=== PATIENT | male | born 1965 | race African-American/Black ===

== ENCOUNTER 2017-07-16 09:25 | Emergency (ER) | payer OTHER ==
[~2017-07-16] VITALS: Ht 165.1 cm; Wt 85.0 kg
[~2017-07-16 09:25] MED LIST: NAPR550 PO; NASA0.0521; PROT40TA PO; ROBA750T3 PO
[2017-07-16 09:30] VITALS: BP 145/83; PULSE 89; RESP 16; TEMP 98.2; O2SAT 98
[2017-07-16] MEDS ORDERED: TRAM50TA PO (09:54)
[2017-07-16] MEDS ORDERED: NAPR500T2 PO (09:54)
[2017-07-16] MEDS ORDERED: KETOROLAC TROMETHAMINE 60 MG/2 ML (IM) VIAL IM ONE (10:00)
--- NOTE | 2017-07-16 10:03 | PD ---
HPI Chief Complaint: Musculoskeletal Complaint Time Seen by Provider: 09:51 Travel History International Travel<30 days: No Contact w/Intl Traveler<30days: No Traveled to known affect area: No History of Present Illness HPI 52-year-old male here with left knee and hip pain times one day. Denies injury or trauma. Patient is with weightbearing range of motion. Slightly relieved with BenGay and rest. Severity is mild. Patient denies lower extremity swelling, altered sensation, history of DVTs. He reports a history of knee arthritis. [facility] Past Medical History Medical History: Denies Significant Hx Diminished Hearing: No Tetanus Vaccination: < 5 Years Past Surgical History Other Surgery: Yes (NASAL SURGERY) Social History Alcohol Use: Yes (OCC) Tobacco Use: No Substance Use: No Allergies-Medications (Allergen,Severity, Reaction): Coded Allergies: No Known Allergies (Unverified Adverse Reaction, Unknown, 07/16/17) Reported Meds & Prescriptions Reported Meds & Active Scripts Active Reported Tramadol (Tramadol HCl) 50 Mg Tab 50 Mg PO Q8H PRN Naproxen 500 Mg Tab 500 Mg PO BID Review of Systems Except as stated in HPI: all other systems reviewed are Neg Physical Exam Narrative GENERAL: Alert well-appearing 52-year-old male. Patient ambulates with steady gait SKIN: Warm and dry. HEAD: Normocephalic. EYES: No injection or drainage. NECK: Supple MUSCULOSKELETAL: No cyanosis, or edema. Left lower extremity: Mild +TTP anterior/lateral thigh, knee, hip. Hip/knee flexion elicit mild pain. No extremity swelling. No calf tenderness. Negative Homans sign. 2+ DP pulse. Extremities warm. Brisk cap refill. BACK: Nontender without obvious deformity. No CVA tenderness. Data Data Last Documented VS Vital Signs Date Time Temp Pulse Resp B/P (MAP) Pulse Ox O2 Delivery O2 Flow Rate FiO2 07/16/17 09:30 98.2 89 16 145/83 (103) 98 Orders Orders Ketorolac Inj (Toradol Inj) (07/16/17 10:00) [facility] Medical Decision Making Medical Screen Exam Complete: Yes Emergency Medical Condition: Yes Differential Diagnosis Quadricep strain, arthritis, fracture unlikely, DVT unlikely Narrative Course 52-year-old male here with left knee/thigh/hip pain times one day. Symptom severity is mild. Extremity is neurovascularly intact. Is given a shot of Toradol. Instructed to follow-up with his primary doctor. Diagnosis Primary Impression: Quadriceps muscle strain Qualified Codes: S76.112A - Strain of left quadriceps muscle, fascia and tendon, initial encounter Referrals: Primary Care Physician Additional Instructions: Continue Naprosyn and Ultram as needed for pain. Continue to use BenGay. Avoid heavy lifting or strenuous activity. Follow-up with her primary doctor. Return to emergency department if he developed new or worsening symptoms Disposition: 01 DISCHARGE HOME Condition: Stable Kaitlyn Mccoy Jul 16, 2017 10:03
== END 2017-07-16 10:09 | disposition home or self-care (01) ==
LOC: PHED 09:25 → PHEFT 10:09
DX: S76.112A Strain of left quadriceps muscle, fascia and tendon, initial encounter (principal); X58.XXXA Exposure to other specified factors, initial encounter
CPT/HCPCS: 96372; 99284; J1885

== ENCOUNTER 2017-12-06 05:20 | Inpatient (IN) ==
[2017-12-06] MEDS ORDERED: Dexamethasone Inj 20 MG/5 ML Vial IV.PUSH SCH (05:40)
[2017-12-06] MEDS ORDERED: Chlorhexidine 4% Topical 120 APPLIC/120 ML Bottle TOPICAL SCH (05:45)
[2017-12-06] MEDS ORDERED: Sodium Chlor 0.9% Inj 40 ML, Bupivacaine Liposo PF 1.3% Inj 20 ML P-ARTICULR SCH ×2 (05:45)
[2017-12-06] MEDS ORDERED: Chlorhexidine Gluconate 2% 1 Pack (2 Cloths) TOPICAL SCH (06:00)
[2017-12-06] MEDS ORDERED: Sodium Chlor 0.9% Inj 500 ML IV.SIG SCH (06:00)
[2017-12-06] MEDS ORDERED: Metoprolol Tartrate 25 MG Tablet PO SCH (06:00)
[2017-12-06] MEDS ORDERED: ceFAZolin Inj 2,000 MG in Sodium Chlor 0.9% Inj 100 ML IV.SIG SCH ×2 (06:00)
[2017-12-06] MEDS ORDERED: Vancomycin Inj 1 GM/200 ML PIGGYBACK IV.SIG SCH (06:00)
[2017-12-06] MEDS ORDERED: ceFAZolin 2 GM Premix Inj 2 GM/50 ML PIGGYBACK IV.SIG ONE (06:51)
[2017-12-06] MEDS ORDERED: TRANEXAMIC ACID IV.SIG SCH ×2 (07:00→10:00)
[2017-12-06] MEDS ORDERED: SODIUM CHLOR 0.9% IV.SIG SCH ×2 (07:00→10:00)
--- NOTE | 2017-12-06 07:15 | P.DCO ---
- Physical Therapy Physical Therapy: Gait training, Transfer training, bed to chair Hip: Total hip Left Lower Extremity Weight Bearing: Weight bearing as tolerated Left Lower Extremity Range of Motion: Active ROM - Nursing Nursing: Sae bruno Dressing changes: Do not change dressing Additional instructions: First dressing change in the office - Certification Need for Home Health services: I have seen patient Devyn Tamayo on 12/06/17. My clinical findings support the need for the requested home health care services because: Need for Home Health Services: Limited ability to care for self, High risk of falls Homebound Certification: I certify that my clinical findings support that this patient is homebound because: Homebound Certification: Post-op weakness, Unsteady gait/balance
[2017-12-06] MEDS ORDERED: Bisacodyl 10 MG Supp RECTAL PRN (08:37)
[2017-12-06] MEDS ORDERED: Aluminum/Magnesium/Simethacone Susp 30 ML UDC PO PRN (08:37)
[2017-12-06] MEDS ORDERED: Morphine Inj 4 MG/ML Vial IV.PUSH PRN (08:37)
[2017-12-06] MEDS ORDERED: Post-op Orders (for Pharmacy) OTHER STA (08:37)
--- NOTE | 2017-12-06 08:42 | P.OP ---
- Preoperative Diagnosis (1) Osteoarthritis of left hip - Postoperative Diagnosis (1) Osteoarthritis of left hip Date of procedure: 12/06/17 Procedure: Left total hip arthroplasty Anesthesia: GETA Surgeon: Buzz Diop MD Inspector [employer]iconductor Wafer: RITU Casas The surgical procedure was assisted by my Advanced Registered Nurse Practitioner. My STITCHER STANDARD MACHINE presence was necessary throughout this case for the manipulation and positioning of the surgical extremity. My STITCHER STANDARD MACHINE was assisting me throughout the duration of this procedure. The skill set of an Advance Registered Nurse Practitioner was medically necessary to complete this procedure. During the surgical case, the chief technical officer was working at the back table and the Advance Registered Nurse Practitioner was directly assisting me. Operation and Findings: IMPLANT DESCRIPTION: 1. [place] Gription Cup, acetabular size 48. 2. [place] AltrX polyethylene, neutral. 4. [place] femoral stem size 10, no collar, standard offset. 5. Femoral head/neck ceramic, 32, +5.0. ESTIMATED BLOOD LOSS: 200 cc. JUSTIFICATION FOR PROCEDURE: The patient has end-stage osteoarthritis to the hip. There is an attached conservative measures pathway form in the chart that describes the nonoperative measures that were undertaken prior to consideration of surgical management. The patient understood the risks and benefits of surgical management. See my office notes for further details. PROCEDURE: The patient was brought back to the operative theatre. Adequate anesthesia was obtained. The patient received intravenous vancomycin and Ancef. The patient was carefully placed on the operative table. The lower extremity was prepped and draped in the usual sterile fashion. Fluoroscopic images were obtained. We made a standard anterior incision over the hip. We dissected through the TFL fascia, exposing the anterior capsule. Arthrotomy was performed in a T-shaped fashion. The capsule was tagged with a #2 FiberWire. End-stage arthritis was identified. Osteotomy was performed through the femoral neck exposing the acetabulum. Remnants of the labrum were resected and osteophytes were removed. We sequentially reamed the acetabulum. Note that the acetabulum was higher on the left side than the right side which was expected based on preoperative analysis. Therefore, overall the cup was placed in a more high hip center then equal to the other side. We trialed the hip and placed the final cup into position. This was done under fluoroscopic guidance to obtain the appropriate inclination and anteversion. A manhole cover was placed into the acetabular component. We then placed the final polyethylene into position and confirmed that it was well seated. Capsular attachments on the calcar and the inner aspect of the greater trochanter were resected. On the proximal aspect of the femur we used a rongeur , box osteotome, canal finder, sequential broaches and lateralizing rasp. We calcar planed the proximal femur. Then thoroughly irrigated the wound. We trialed the hip with the appropriate size stem. We placed the final stem in to position and trialed again. The hip was stable while it was externally rotated 70 degrees when the leg was lowered to the floor. The final head was applied, and final fluoroscopic images were obtained. The wound was thoroughly irrigated again. Interarticular injection of liposomal bupivacaine was given. The capsule was closed with #2 FiberWire and #1 Vicryl. The deep fascia was closed with a #2 Stratafix, followed by 2-0 Vicryl in the skin and Dermabond dressing. Postop plan is to weight-bear as tolerated. DVT prophylaxis will be performed with KELLY Bryan, early mobilization, and Lovenox followed by aspirin.
[2017-12-06] MEDS ORDERED: fentaNYL Citrate Inj 100 MCG/2 ML Ampul ONE ×2 (09:04)
[2017-12-06] MEDS ORDERED: *morphine SULFATE 4 MG/ML PERIprocedure ONLY ONE ×2 (09:25→09:35)
[2017-12-06] MEDS: Sod Chloride 0.9% Inj 1,000 ML IV.CONT SCH ×2 (09:36→22:07)
[2017-12-06] MEDS: Multivitamin/Minerals Therapeutic Tablet PO SCH ×2 (09:40→20:05)
[2017-12-06] MEDS: Senna/Docusate Sodium 8.6/50 MG Tablet PO SCH ×2 (09:40→20:05)
--- NOTE | 2017-12-06 10:16 | XR ---
EXAM DATE: 12/06/2017 9:43 AM EDT AGE/SEX: 52 years / Male INDICATIONS: Left total hip replacement. CLINICAL DATA: This is the patient's initial encounter. Patient reports that signs and symptoms have been present for 1 day and indicates a pain score of Nonresponsive. MEDICAL/SURGICAL HISTORY: Non-responsive. Non-responsive. COMPARISON: No prior exams available for comparison. FINDINGS: Left total hip arthroplasty. The acetabular cup projects just underneath the medial cortical surface of the ileum but the overlying bony structures appear to be intact. No fracture. No dislocation. Dege nerative osteoarthritic changes in the right hip. CONCLUSION: 1. Left total hip arthroplasty with no plain film findings of fracture or dislocation 2. Again, the acetabular cup projects just inferolateral to the medial cortex of the left ilium but the cortical surface appears to be intact Electronically signed by: Timothy Bell MD 12/06/2017 10:14 AM EDT
--- NOTE | 2017-12-06 10:19 | XR ---
EXAM DATE: 12/06/2017 9:55 AM EDT AGE/SEX: 52 years / Male INDICATIONS: Left total hip arthroplasty. CLINICAL DATA: This is the patient's initial encounter. Patient reports that signs and symptoms have been present for 1 day and indicates a pain score of Nonresponsive. MEDICAL/SURGICAL HISTORY: None. None. COMPARISON: No prior exams available for comparison. FINDINGS: Status post left hip prosthesis. There is good position and alignment of the prosthesis with the bony structures. The bony structures are grossly intact. CONCLUSION: Good position and alignment on this postoperative study. Electronically signed by: Luke Peres MD 12/06/2017 10:17 AM EDT
[2017-12-06] MEDS: Pantoprazole Sodium 20 MG DR Tablet PO SCH (11:24)
[2017-12-06] MEDS ORDERED: Phenylephrine/NS 1000 MCG/10ML Syringe IV.PUSH ONE (12:00)
[2017-12-06] MEDS ORDERED: Neostigmine Inj 5 MG/5 ML Syringe IV.PUSH ONE (12:00)
[2017-12-06] MEDS ORDERED: Lidocaine PF 1% Inj 5 ML Syringe INFILTRATN ONE (12:00)
[2017-12-06] MEDS ORDERED: Glycopyrrolate Inj 1 MG/5 ML Syringe IV.PUSH ONE (12:00)
[2017-12-06] MEDS ORDERED: Zolpidem Tartrate 5 MG Tablet PO PRN (21:00)
[2017-12-07 04:58] LABS: Hematocrit 36.7 % (39.0-51.0)
[2017-12-07] MEDS ORDERED: Enoxaparin Inj 40 MG/0.4 ML Syringe SQ SCH (08:00)
[2017-12-07] MEDS ORDERED: Dexamethasone Inj 20 MG/5 ML Vial IV.PUSH ONE (08:00)
[2017-12-07] MEDS: Multivitamin/Minerals Therapeutic Tablet PO SCH (09:16)
[2017-12-07] MEDS: Pantoprazole Sodium 20 MG DR Tablet PO SCH (09:16)
[2017-12-07] MEDS: Senna/Docusate Sodium 8.6/50 MG Tablet PO SCH (09:16)
[2017-12-07 10:04] VITALS: RESP 18; O2SAT 95
[2017-12-07] MEDS: Sod Chloride 0.9% Inj 1,000 ML IV.CONT SCH (13:19)
[2017-12-07 14:35] VITALS: BP 145/69; PULSE 80; TEMP 98.7
--- NOTE | 2017-12-09 21:36 | P.DS ---
Date of admission: 12/06/17 05:20 Primary care physician: Alvaro Murillo MD Attending physician on discharge: Buzz Diop Anticipated date of discharge: 12/07/17 Brief History from admission: The patient has a history of severe osteoarthritis of the left hip. The patient was admitted to the hospital to have a left MIRTHA. DS: Diagnosis - Discharge Diagnosis (1) Status post total hip replacement, left Status: Acute Diagnosis: Principal (2) Osteoarthritis of left hip Status: Acute Diagnosis: Principal DS: Summary Hospital Course: The patient was admitted to the hospital for severe osteoarthritis of the left hip to have a left total hip arthroplasty. The patient's surgery went well with no complication. The patient is on a [regular] diet. The patient's DVT prophylaxis includes use of [Lovenox followed by aspirin]. The patient is weightbearing as tolerated. The patient was discharged home with home health and will follow up in the office with Dr. Diop and/or RITU Bee as previously scheduled. - Time Spent with Patient Total time spent providing and/or coordinating discharge services: Greater than 30 minutes - Quality: VTE Deep Vein Thrombosis/Pulmonary Embolism Present on Admission: No Exam Narrative: The patient was discharged prior to evaluation today by the undersigned. The patient had a clean, dry, and intact dressing per conversation with the nurse. The patient's postop labs were reviewed prior to discharge by the undersigned. The patient was instructed in her postop plan of care prior to surgery and reinforced today by staff per the undersigned's request. The patient was given her postop medications prior to surgery. The patient understands that home health will be initiated tomorrow. The patient also understands she can contact the office at any time and speak to the on-call physician with any concerns or questions. Is Results Procedures completed during hospitalization: Left total hip arthroplasty - Impressions ITS Impressions Hip X-Ray 12/06/17 08:37 CONCLUSION: 1. Left total hip arthroplasty with no plain film findings of fracture or dislocation 2. Again, the acetabular cup projects just inferolateral to the medial cortex of the left ilium but the cortical surface appears to be intact Discharge Plan - Discharge Disposition Patient Disposition: W/Home Health Service - Discharge Condition Condition: Stable - Discharge Order Discharge Orders: Discharge Order (Routine); Ordered 12/06/17 Ordered By: Jovi Lewis - Discharge Details Anticipated Discharge Date: 12/07/17 Discharge Comment: The patient should follow with Dr. Diop or RITU Bee as previously scheduled. - Physicians Team Primary Care Provider: Alvaro Murillo Attending Provider: Buzz Diop Other Providers: [facility],Agency - Rxs /Orders / Referrals /Forms Prescriptions: Continue omeprazole magnesium [Prilosec OTC] 20 mg Tablet,Delayed Release (Dr/Ec) 20 mg PO DAILY Discontinued naproxen 375 mg Tablet 375 mg PO BID omega-3 fatty acids-fish oil [Fish Oil] 360-1,200 mg Capsule 1 cap PO DAILY tramadol 50 mg Tablet 50 mg PO Q4-6H PRN (Reason: Pain) Ambulatory Orders / Order Sets / DME: Adjustable Commode 3-in-1 (1 each) (Routine) Location: Determined by Patient Ordered By: Jovi Lewis Walker With Front Wheels (1 each) (Routine) Location: Determined by Patient Ordered By: Jovi Lewis Referrals: Buzz Diop MD [Physician] - See Instructions ( Your appointment has been scheduled for Monday12/19/17 at 9:50am. If you cannot make this appointment, please call the office to reschedule ) Alvaro Murillo MD [Primary Care Provider] - See Instructions - Discharge Instructions Patient Printed Instructions: How to Choose and Use a Walker (GEN), Fall Prevention for Older Adults (DC), Total Hip Replacement (DC) Additional Instructions: Full weight bearing Follow up appt for 12/[address] Diop as [facility] office - Post Discharge Care Plan Care Plan Goals: Discharge Care Plan Goals for Total Hip Replacement You had a hip replacement surgery. This means your natural hip was replaced with an artificial joint (prosthesis). You may be recovering at home or in a rehabilitation facility. Either way, you must take care of your new hip. Here are some goals to help you heal well. Directions to Meet your Goals: 1. Activity & Exercises: * Take pain medicine as directed by your doctor. * Dont drive until your doctor says its OK. And never drive while taking opioid pain medicine. * Wear the support stockings you were given in the hospital as directed by your surgeon. * Dont sit for more than 30 to 45 minutes at one time. * Dont lean forward while sitting. * Dont cross your legs. * Keep your feet flat on the floor. Dont turn your foot or leg inward. This stresses your hip joint. * Use an elevated toilet seat for 6 weeks after surgery. * Nap if you are tired, but dont stay in bed all day. * Sit on a firm cushion when you ride in a car and avoid sitting too low. Try not to bend your hip too much when getting in and out of the car. 2. Prevent Falls/Injury: * Follow your doctors orders regarding how much weight to put on the affected leg. * Dont bend at the hip when you bend over. Don't bend at the waist to put on socks and shoes. And avoid picking up items from the floor. * Use a cane, crutches, a walker, or handrails until your balance, flexibility, and strength improve. And remember to ask for help from others when you need it. * Free up your hands so that you can use them to keep balance. Use a eusebio pack , apron, or pockets to carry things. * Arrange your household to keep the items you need handy. Keep everything else out of the way. * Remove items that may cause you to fall, such as throw rugs and electrical cords. * Use nonslip bath mats, grab bars, an elevated toilet seat, and a shower chair in your bathroom * Sit on a shower stool or chair when you shower to keep from falling. 3. Precautions: * Prevent infection. Any infection will need to be treated immediately. Call your doctor right away if you think you might have an infection. * Tell your dentist that you have an artificial joint and take antibiotics as prescribed before any dental work. * Tell all your healthcare providers about your artificial joint before any medical procedure. * Maintain a healthy weight. Get help to lose any extra pounds. Added body weight puts stress on the joints. 4. Incision Care: * Prevent infection by washing your hands often. If an infection occurs, it will need to be treated right away. * Call your doctor right away if you think you may have an infection. Symptoms include a fever or an incision that leaks white, green, or yellow fluid. * Don't soak your incision in water until your doctor says its OK. This means no hot tubs, bathtubs, or swimming pools. * Follow your doctor's instructions for changing the dressing. * Dont rub the incision, or apply creams or lotions to it. * If you notice any redness or drainage around the bandage site, contact your surgeon's office immediately. 5. Follow-Up: Do Not miss your follow-up appointment. Keep up with all your appointments and yearly check ups When to call your doctor: Call your doctor right away if you have: Hip pain gets worse Pain or swelling in your calf or leg not related to your incision Tenderness or redness in your calf Fever of 100.4F (38C) or higher, or as directed by your healthcare provider Shaking chills Swelling or redness at the incision site gets worse Fluid draining from the incision Call 911: Call 911 right away if you have: Chest pain Shortness of breath Any pain or tenderness in your calf
== END 2017-12-07 14:35 | disposition home health service (06) ==
LOC: HSDI 05:20 → N06 10:40
PROVIDERS: ADMIT Orthopaedic Surgery; ATTEND Orthopaedic Surgery